=== PATIENT | female | born 1950 | race Caucasian/White ===

== ENCOUNTER 2018-08-25 16:07 | Emergency (ER) | payer MEDICARE ==
[~2018-08-25] VITALS: Ht 152.4 cm; Wt 101.2 kg
--- OUTSIDE RECORDS SUMMARY | ~2018-08-25 | XMS | Clinical Summary ---
Demographics + + + | Address | [address] | | | [place] [address] | + + + | Home Phone | | + + + | Preferred Language | Unknown | + + + | Marital Status | Single | + + + | Scientologist Affiliation | CAT | + + + | Race | White | + + + | Ethnic Group | Not or | + + + Author + + + | Author | NON REVENUE LOCATIONS | + + + | Organization | NON REVENUE LOCATIONS | + + + | Address | Unknown | + + + | Phone | Unavailable | + + + Support + + +---------+ + | Name | Relationship | Address | Phone | + + +---------+ + | BARRERA SANCHEZ | ECON | Unknown | | + + +---------+ + Care Team Providers + +------+ + | Care Head Operator Name | Role | Phone | + +------+ + PP | Unavailable | + +------+ + Source Comments BERNARD is fully live on both [facility] Amb[facility] and [facility] InPatient.[facility] Allergies No Known Allergies Current Medications + + + +---------+------+------+-------+ | Prescription | Sig. | Disp. | Refills | Star | End | Statu | | | | | | t | Date | s | | | | | | Date | | | + + + +---------+------+------+-------+ | cholecalciferol, | Take 2,000 Units by | | | | | Activ | | Vitamin D3, 1,000 | mouth once daily. | | | | | e | | unit oral tablet | | | | | | | + + + +---------+------+------+-------+ | ascorbic acid 500 | Take 500 mg by mouth | | | | | Activ | | mg oral tablet | once daily as | | | | | e | | | needed. | | | | | | + + + +---------+------+------+-------+ | FOLIC | Take 1 tablet by | | | | | Activ | | ACID/MV,FE,OTHER MIN | mouth once daily. | | | | | e | | (CENTRUM ORAL) | | | | | | | + + + +---------+------+------+-------+ | cyanocobalamin | Take 2,500 mcg by | | | | | Activ | | 1,000 mcg oral | mouth once daily. | | | | | e | | tablet | | | | | | | + + + +---------+------+------+-------+ | aspirin chewable | Take 81 mg by mouth | | | | | Activ | | 81 mg oral | once daily. | | | | | e | | tablet,chewable | | | | | | | + + + +---------+------+------+-------+ | ferrous sulfate | Take 1 tablet by | 60 | 5 | 05/2 | | Activ | | 325 mg total salt | mouth two times | tablet | | 9/20 | | e | | (65 mg elemental) | daily. | | | 15 | | | | oral tablet | | | | | | | + + + +---------+------+------+-------+ | celecoxib 200 mg | Take 1 capsule by | 180 | 3 | 07/0 | | Activ | | oral | mouth two times | capsule | | 9/20 | | e | | capsuleIndications: | daily. Administer | | | 15 | | | | Arthritis of foot, | with food. | | | | | | | right | | | | | | | + + + +---------+------+------+-------+ | escitalopram | Take 1 tablet by | 90 | 3 | 03/2 | | Activ | | oxalate (LEXAPRO) 5 | mouth once daily. | tablet | | 1/20 | | e | | mg oral | | | | 16 | | | | tabletIndications: | | | | | | | | Recurrent major | | | | | | | | depressive disorder, | | | | | | | | in partial | | | | | | | | remission (HCC) | | | | | | | + + + +---------+------+------+-------+ | cetirizine 10 mg | Take 1 tablet by | 90 | 3 | 03/2 | | Activ | | oral tablet | mouth once daily. | tablet | | 1/20 | | e | | | | | | 16 | | | + + + +---------+------+------+-------+ | esomeprazole | Take 1 capsule by | 90 | 3 | 03/2 | | Activ | | (NEXIUM) 40 mg oral | mouth once daily in | capsule | | 1/20 | | e | | capsule,delayed | the morning. | | | 16 | | | | release(DR/EC) | | | | | | | + + + +---------+------+------+-------+ | estradiol 1 mg | Take 1 tablet by | 90 | 3 | 03/2 | | Activ | | oral tablet | mouth once daily. | tablet | | 1/20 | | e | | | | | | 16 | | | + + + +---------+------+------+-------+ | | Take 1 tablet by | 90 | 3 | 03/2 | | Activ | | losartan-hydrochloro | mouth once daily. | tablet | | 1/20 | | e | | thiazide 50-12.5 mg | | | | 16 | | | | oral tablet | | | | | | | + + + +---------+------+------+-------+ | montelukast 10 mg | Take 1 tablet by | 90 | 3 | 03/2 | | Activ | | oral tablet | mouth once daily in | tablet | | 1/20 | | e | | | the evening. | | | 16 | | | + + + +---------+------+------+-------+ | simvastatin 40 mg | Take 1 tablet by | 90 | 3 | 03/2 | | Activ | | oral tablet | mouth once daily in | tablet | | 1/20 | | e | | | the evening. | | | 16 | | | + + + +---------+------+------+-------+ | tolterodine ER 4 | Take 1 capsule by | 90 | 3 | 03/2 | | Activ | | mg oral | mouth once daily. | capsule | | 1/20 | | e | | capsule,extended | | | | 16 | | | | release 24hr | | | | | | | + + + +---------+------+------+-------+ | potassium chloride | Take 1 tablet by | 90 | 3 | 03/2 | | Activ | | 10 mEq oral tablet | mouth once daily. | tablet | | 1/20 | | e | | extended release | | | | 16 | | | + + + +---------+------+------+-------+ | fluticasone 50 | Instill 2 sprays | 1 each | 3 | 03/2 | | Activ | | mcg/actuation nasal | into each nostril | | | 1/20 | | e | | spray,suspension | once daily. | | | 16 | | | + + + +---------+------+------+-------+ Active Problems + + + | Problem | Noted Date | + + + | Depression | 12/21/2014 | + + + | Other seborrheic keratosis | 10/04/2014 | + + + | Diverticular disease of colon | 08/20/2014 | + + + + + | Overview: From hepatic flexure through sigmoid colon; | | confirmed on colonoscopy 09/2014. | + + + + + | Iron deficiency anemia | 08/10/2014 | + + + | Grief reaction | 08/09/2014 | + + + + + | Overview: - suddenly in December 2013 from | | esophageal CA (dx only 2 months prior)- Was on wellbutrin, but | | replaced with [place]'s Wort and is happy with this | + + + + + | Postmenopausal | 08/09/2014 | + + + + + | Overview: Has been on estrace since age 51 (s/p hysterectomy) | + + + + + | Tobacco use | 08/09/2014 | + + + + + | Overview: Started smoking again - quit for 22 years, but | | restarted after of . 1 pack every 2-3 days. | + + + + + | Overweight | 08/09/2014 | + + + | ZEB on CPAP | 08/08/2014 | + + + + + | Overview: APAP 6-10 mmHg | | Most recent setting 8mmHg (as of 01/2015) | + + + + + | Osteoarthritis | 08/08/2014 | + + + + + | Overview: S/p | + + + + + | Seasonal allergies | 08/08/2014 | + + + | Stress incontinence | 08/08/2014 | + + + | Osteoporosis | 08/08/2014 | + + + + + | Overview: Was on Boniva, but stopped due to insurance and | | weekly dosing schedule. | + + + + + | HTN (hypertension) | 08/08/2014 | + + + Resolved Problems + + + + | Problem | Noted | Resolved | | | Date | Date | + + + + | ZEB on CPAP | 12/22/19 | | | | 15 | 5 | + + + + | Personal history of other malignant neoplasm of skin | 10/05/19 | | | | 15 | 5 | + + + + | Melena | 08/19/19 | | | | 15 | 5 | + + + + Immunizations + + + + | Name | Dates Previously Given | Next Due | + + + + | Influenza, | 09/03/2015 | | | injectable, | | | | quadrivalent, | | | | preservative free | | | | (IIV4) | | | + + + + | Pneumococcal 23 | 04/03/2015 | | + + + + Social History + + + +--------+------+ | Tobacco Use | Types | Packs/Day | Years | Date | | | | | Used | | + + + +--------+------+ | Current Every Day | Cigarettes | 0.5 | 20 | | | Smoker | | | | | + + + +--------+------+ + +---+---+---+ | Smokeless Tobacco: | | | | | Never Used | | | | + +---+---+---+ + + | Tobacco Cessation: Ready to Quit: No; Counseling Given: Yes | + + + + +---------+ + | Alcohol Use | Drinks/We | oz/Week | Comments | | | ek | | | + + +---------+ + | No | | | | + + +---------+ + + + + | Sex Assigned at | Date Recorded | | | | + + + | Not on file | | + + + Last Filed Vital Signs + + + + | Vital Sign | Reading | Time Taken | + + + + | Blood Pressure | 120/82 | 09/03/2015 9:35 AM PDT | + + + + | Pulse | 76 | 09/03/2015 9:35 AM PDT | + + + + | Temperature | 36.8 C (98.3 F) | 09/03/2015 9:35 AM PDT | + + + + | Respiratory Rate | 10 | 11/30/2014 8:27 AM PDT | + + + + | Oxygen Saturation | 96% | 02/07/2015 10:38 AM PDT | + + + + | Inhaled Oxygen | - | - | | Concentration | | | + + + + | Weight | 92.1 kg (203 lb) | 09/03/2015 9:35 AM PDT | + + + + | Height | 152.4 cm (5') | 09/03/2015 9:35 AM PDT | + + + + | Body Mass Index | 39.65 | 09/03/2015 9:35 AM PDT | + + + + Plan of Treatment + + + + + | Health Maintenance | Due Date | Last Done | Comments | + + + + + | HIV screening | | | | | | 2 | | | + + + + + | CERVICAL CANCER | | | | | SCREENING (PAP | 2 | | | | SMEAR) | | | | + + + + + | Pneumococcal (Adult) | | 04/03/2015 | | | (1 of 2 - PCV13) | 7 | | | + + + + + | SUBSTANCE ABUSE | | 09/03/2015 | | | SCREENING | 7 | | | + + + + + | MAMMOGRAM | | 11/14/2014 | | | | 7 | | | + + + + + | Influenza (Flu) | | 09/03/2015 | | | vaccination (#1) | 8 | | | + + + + + | COLON CANCER | | 09/27/2014, 02/23/2012 | | | SCREENING: | 0 | | | | COLONOSCOPY | | | | + + + + + | CHOLESTEROL | | 09/03/2015, 08/08/2014 | | | SCREENING | 1 | | | + + + + + | Hepatitis C | Completed | 08/08/2014 | | | screening | | | | + + + + + Results Not on filefrom Last 3 Months Insurance +---------+--------+ +--------+ +---------+ | Payer | Benefi | Subscriber | Type | Phone | Address | | | t Plan | ID | | | | | | / | | | | | | | Group | | | | | +---------+--------+ +--------+ +---------+ | [place] | RENALD[place] | xxxxxxxxx | [place] | [phone] | | | [address] [place] | | [phone] | [phone] | | | | | | | | | | | HEALTH | | | | | | | NET | | | | | +---------+--------+ +--------+ +---------+ + +--------+ +--------+ + + | Guarantor Name | Accoun | Relation to | Date | Phone | Billing Address | | | t Type | Patient | of | | | | | | | | | | + +--------+ +--------+ + + | ORION SANCHEZ | Person | Self [birth year] Home: | [address] | | | al/Fam | | 1951 | [phone] | [place] [address] | | | [place] | | | [phone] | | + +--------+ +--------+ + +"
--- OUTSIDE RECORDS SUMMARY | ~2018-08-25 | XMS | Clinical Summary ---
Demographics + + + | Address | [address] | | | [place] [address] | + + + | Home Phone | | + + + | Preferred Language | Unknown | + + + | Marital Status | Single | + + + | Sabianist Affiliation | CAT | + + + [...] Team Providers + +------+ + | Care Appliance Mechanic Name | Role | Phone | + +------+ + PP | Unavailable | + +------+ + Source Comments BERNARD is fully live on both [facility] Ambulatory and [facility] InPatient.[facility] Allergies No Known Allergies Current Medications + [...] on wellbutrin, but | | replaced with [place]'s Wort and is happy with this | [...] | 1951 | [phone] | [place] [address] | | | [place] | | | [phone] | | + +--------+ +--------+ + +"
--- OUTSIDE RECORDS SUMMARY | ~2018-08-25 | XMS | Clinical Summary ---
Demographics + + + | Address | [address] | | | [place] [address] | + + + | Home Phone | | + + + | Preferred Language | Unknown | + + + | Marital Status | | + + + | Hinduism Affiliation | Unknown | + + + | Race | Unknown | + + + | Ethnic Group | Unknown | + + + Author + + + | Author | [facility] | + + + | Organization | [facility] | + + + | Address | Unknown | + + + | Phone | Unavailable | + + + Support + + +---------+ + | Name | Relationship | Address | Phone | + + +---------+ + | Contacts,No | ECON | Unknown | | + + +---------+ + Care Team Providers + +------+ + | Care Bench Lathe Operator Name | Role | Phone | [...] | - [facility] - | [place] | [phone] | | | [address] [address] | | [place] | [place] | | | | [place] | | | [place] | | | | [phone] | | | [place] | | | [...] | | | [place] | | | [phone] | [phone] | + +--------+ +--------+ + +"
--- OUTSIDE RECORDS SUMMARY | ~2018-08-25 | XMS | Clinical Summary ---
Demographics + + + | Address | [address] | | | [place] [address] | + + + | Home Phone | | + + + | Preferred Language | Unknown | + + + | Marital Status | | + + + | Jewish Affiliation | Unknown | + + + | Race | Unknown | + + + | Ethnic Group | Unknown | + + + Author + + + | Author | [facility] | + + + | Organization | [facility] | + + + | Address | Unknown | + + + | Phone | Unavailable | + + + Support + + +---------+ + | Name | Relationship | Address | Phone | + + +---------+ + | Contacts,No | ECON | Unknown | | + + +---------+ + Care Team Providers + +------+ + | Care Director Of Research Name | Role | Phone | + [...] | - [facility] - | [place] | [id number] | | | [address] [address] | | [place] | [place] | | | | [place] | | | [place] | | | | [phone] | | | [place] | | | [...] | | | [place] | | | [phone] | [phone] | + +--------+ +--------+ + +"
[~2018-08-25 16:07] MED LIST: ASPIR 8181 MG PO; ASPIRIN EC325 MG PO; B-121000 MC2 PO; B-12500 MCG PO; CELEBREX200 MG PO; CIPRODEX OTIC7.5 ML AD; DETROL LA4 MG PO; DILTIAZEM 24HR120 MG PO; ESCITALOPRAM OX10 MG PO; ESTRADIOL1 MG PO; FLUTICASONE PRO16 GM NS; IRON SUPPLEMEN325 MG PO; IRON325 M1 PO; KLOR-CON 1010 MEQ PO; LEXAPRO5 MG PO; LOSARTAN-HCTZ1 EAC2 PO; LOSARTAN-HCTZ1 EACH PO; MULTI VITAMIN1 EACH PO; NEXIUM20 MG PO; NEXIUM40 MG PO; NICORETTE4 M1 BUCCAL; PRILOSEC10 M1 PO; SINGULAIR10 MG PO; TRICOR145 MG PO; VITAMIN D1000 UNI1 PO; VITAMIN D5000 UNIT PO; ZOCOR40 MG PO; ZYRTEC10 M3 PO
[2018-08-25] MEDS ORDERED: FLUTICASONE PRO16 GM NAS (16:34)
[2018-08-25] MEDS ORDERED: ATORVASTATIN CA20 MG PO (16:35)
[2018-08-25] MEDS ORDERED: CARTIA XT120 MG PO (16:35)
== END 2018-08-25 17:53 | disposition home or self-care (01) ==
LOC: ED 16:07
DX: S82.831A Other fracture of upper and lower end of right fibula, initial encounter for closed fracture (principal); W00.0XXA Fall on same level due to ice and snow, initial encounter; I10 Essential (primary) hypertension; E78.00 Pure hypercholesterolemia, unspecified; F17.200 Nicotine dependence, unspecified, uncomplicated; Z79.899 Other long term (current) drug therapy
CPT/HCPCS: 73560; 93971; 99284-25

== ENCOUNTER 2018-09-04 17:53 | Emergency (ER) | payer MEDICARE ==
[~2018-09-04] VITALS: Ht 152.4 cm; Wt 101.2 kg
--- OUTSIDE RECORDS SUMMARY | ~2018-09-04 | XMS | Clinical Summary ---
Demographics + + + | Address | [address] | | | [place] [address] | + + + | Home Phone | | + + + | Preferred Language | Unknown | + + + | Marital Status | | + + + | Pentecostalism Affiliation | Unknown | + + + | Race | Unknown | + + + | Ethnic Group | Unknown | + + + Author + + + | Author | [facility] | + + + | Organization | [facility] | + + + | Address | Unknown | + + + | Phone | Unavailable | + + + Support + + +---------+ + | Name | Relationship | Address | Phone | + + +---------+ + | Contacts,No | ECON | Unknown | | + + +---------+ + Care Team Providers + +------+ + | Care Video Tape Transferrer Name | Role | Phone | + +------+ + | Hua Leung MD | PP | | + +------+ + Allergies Not on File Current Medications Not on file Active Problems Not on file Social History + +-------+ +--------+------+ | Tobacco Use | Types | Packs/Day | Years | Date | | | | | Used | | + +-------+ +--------+------+ | Never Assessed | | | | | + +-------+ +--------+------+ + + + | Sex Assigned at | Date Recorded | | | | + + + | Not on file | | + + + Plan of Treatment + + + + + | Health Maintenance | Due Date | Last Done | Comments | + + + + + | Vaccine: | | | | | Dtap/Tdap/Td (1 - | 1 | | | | Tdap) | | | | + + + + + | Breast Cancer | | | | | Screening | 2 | | | | (Mammogram) | | | | + + + + + | Colon Cancer | | | | | Screening | 2 | | | | (Colonoscopy) | | | | + + + + + | Vaccine: Zoster (1 | | | | | of 2) | 2 | | | + + + + + | DEXA SCAN SCREENING | | | | | | 7 | | | + + + + + | Vaccine: | | | | | Pneumococcal 65+ | 7 | | | | Low/Medium Risk (1 | | | | | of 2 - PCV13) | | | | + + + + + | Vaccine: Influenza | | | | | (#1) | 8 | | | + + + + + Results Not on filefrom Last 3 Months Insurance + +--------+ +------+-------+ + | Payer | Benefi | Subscriber | Type | Phone | Address | | | t Plan | ID | | | | | | / | | | | | | | Group | | | | | + +--------+ +------+-------+ + | - W[employer] - | [place] | [id number] | | | [address] [address] | | [place] | [place] | | | | [place] | | | [place] | | | | [phone] | | | [place] | | | | | | | N[place] | | | | | + +--------+ +------+-------+ + + +--------+ +--------+ + + | Guarantor [...] | 1951 | [phone] | [place] | | | [place] | | | [phone] | [phone] | + +--------+ +--------+ + +"
--- OUTSIDE RECORDS SUMMARY | ~2018-09-04 | XMS | Clinical Summary ---
Demographics + + + | Address | [address] | | | [place] [address] | + + + | Home Phone | | + + + | Preferred Language | Unknown | + + + | Marital Status | Single | + + + | Christian Affiliation | CAT | + + + [...] Team Providers + +------+ + | Care Assistant Chief Of Police Name | Role | Phone | + +------+ + PP | Unavailable | + +------+ + Source Comments BERNARD is fully live on both [facility] Ambulatory and [facility] InPatient.[facility] Allergies No Known Allergies Current Medications [...] on wellbutrin, but | | replaced with [place]'s Wort and is happy with this | [...] | 1951 | [phone] | [place] [address] | | | [place] | | | [phone] | | + +--------+ +--------+ + +"
--- OUTSIDE RECORDS SUMMARY | ~2018-09-04 | XMS | Clinical Summary ---
Demographics + + + | Address | [address] | | | [place] [address] | + + + | Home Phone | | + + + | Preferred Language | Unknown | + + + | Marital Status | Single | + + + | Mandaeism Affiliation | CAT | + + + [...] Team Providers + +------+ + | Care Supervisor Finishing Room Name | Role | Phone | + +------+ + PP | Unavailable | + +------+ + Source Comments BERNARD is fully live on both [facility] Ambulatory and [facility] InPatient.[facility] Allergies No Known Allergies Current Medications [...] on wellbutrin, but | | replaced with [place]'s Wort and is happy with this | [...] | 1951 | [phone] | [place] [address] | | | [place] | | | [phone] | | + +--------+ +--------+ + +"
--- OUTSIDE RECORDS SUMMARY | ~2018-09-04 | XMS | Clinical Summary ---
Demographics + + + | Address | [address] | | | [place] [address] | + + + | Home Phone | | + + + | Preferred Language | Unknown | + + + | Marital Status | | + + + | Moravian Affiliation | Unknown | + + + | Race | Unknown | + + + | Ethnic Group | Unknown | + + + Author + + + | Author | [facility] | + + + | Organization | [facility] | + + + | Address | Unknown | + + + | Phone | Unavailable | + + + Support + + +---------+ + | Name | Relationship | Address | Phone | + + +---------+ + | Contacts,No | ECON | Unknown | | + + +---------+ + Care Team Providers + +------+ + | Care Disc Ruler Operator Name | Role | Phone | [...] | - [facility] - | [place] | [id number] | | | [address] [address] | | [place] | [place] | | | | [place] | | | [place] | | | | [phone] | | | [place] | | | [...] | | | [place] | | | [phone] | [phone] | + +--------+ +--------+ + +"
[~2018-09-04 17:53] MED LIST changes: +ATORVASTATIN CA20 MG PO; +CARTIA XT120 MG PO; +FLUTICASONE PRO16 GM NAS
--- OUTSIDE RECORDS SUMMARY | 2018-09-04 17:56 | XMS ---
PreManage Notification: ORION SANCHEZ Security Collar Trimmer Events No recent Security Events currently on file CRITERIA MET - [facility] - 2 Visits in 30 Days CARE PROVIDERS There are no care providers on record at this time. [facility] has no Care Guidelines for this patient. [facility] VISIT COUNT (12 MO.) 2 [facility] [place] [facility]. TOTAL 2 NOTE: Visits indicate total known visits. ED/[facility] VISIT TRACKING (12 MO.) 09/04/2018 17:54 [facility] [place] TYPE: Emergency COMPLAINT: - FELL HITTING HEAD 08/25/2018 16:[address] [facility] [place] TYPE: Emergency COMPLAINT: - R LEG PAIN,INJURY DIAGNOSES: - Pure hypercholesterolemia, unspecified - Pain in right knee - Essential (primary) hypertension - Other fracture of upper and lower end of right fibula, initial encounter for closed fracture - Nicotine dependence, unspecified, uncomplicated - Fall on same level due to ice and snow, initial encounter - Other prison (current) drug therapy INPATIENT VISIT TRACKING (12 MO.) No inpatient visits to display in this time frame [email or web address]
== END 2018-09-04 18:40 | disposition home or self-care (01) ==
LOC: ED 17:53
DX: S00.03XA Contusion of scalp, initial encounter (principal); I10 Essential (primary) hypertension; E78.00 Pure hypercholesterolemia, unspecified; F17.200 Nicotine dependence, unspecified, uncomplicated; Z90.710 Acquired absence of both cervix and uterus; Z79.899 Other long term (current) drug therapy; W10.9XXA Fall (on) (from) unspecified stairs and steps, initial encounter; W01.10XA Fall on same level from slipping, tripping and stumbling with subsequent striking against unspecified object, initial encounter
CPT/HCPCS: 99283